=== PATIENT | female | born 1935 | race Two or more races ===

== ENCOUNTER 2016-12-10 15:59 | Observation (INO) | payer OTHER ==
[~2016-12-10] VITALS: Ht 149.9 cm; Wt 66.7 kg
[~2016-12-10 15:59] MED LIST: DIGO0.1262; FURO20TA; GLUC-163; LOSA100T22; METF-312; METO-462; POTA10TA75; TRAZ50T; WARF2TAB55
[2016-12-10] MEDS ORDERED: SODIUM CHLORIDE 0.9% 1,000 ML IV ONE (17:06)
[2016-12-10 17:09] LABS: Basophils # (auto) 0 uL; Eosinophils # (auto) 0 uL; Hematocrit 43.2 % (36.0-46.0); Hemoglobin 14.3 g/dL (12.2-16.2); Lymphocytes # (auto) 0.8 uL; Lymphocytes % (auto) 5.8 % (10.0-50.0); Mean Corpuscular Hemoglobin 29.2 pg (28.0-32.0); Mean Corpuscular Hgb Conc. 33.2 g/dL (32.0-36.0); Mean Corpuscular Volume 88.2 fL (80.0-100.0); Monocytes # (auto) 0.6 uL; Monocytes % (auto) 4.4 % (0.0-12.0); Neutrophils % (auto) 89.8 % (37.0-80.0); Platelet Count (auto) 211 10^3/uL (140-450); Red Cell Distribution Width 15.4 % (11.6-16.0); White Blood Cell 13.4 10^3/uL (4.4-10.8)
[2016-12-10] MEDS ORDERED: ONDANSETRON HCL 4 MG/2 ML VIAL IV ONE ×2 (17:15→23:00)
[2016-12-10 17:18] LABS: Albumin 3.2 g/dL (3.4-5.0); BUN/Creatinine Ratio 17.9; Bilirubin, Total 1.1 mg/dL (0.2-1.0); Calcium 8.5 mg/dL (8.5-10.1); Magnesium 2.4 mg/dL (1.6-2.6); Potassium 3.5 mmol/L (3.5-5.1); Total Protein 7.1 g/dL (6.4-8.2)
[2016-12-10] MEDS: MORPHINE SULF INJ 2 MG/ML SYRINGE 1ML IV ONE ×2 (17:24→17:28)
[2016-12-10] MEDS ORDERED: MEPERIDINE HCL (25 MG/ML) 1ML VIAL IV ONE (17:30)
[2016-12-10 18:22] LABS: Partial Thromboplastin Time 32.7 sec (22.64-33.71)
[2016-12-10 18:23] LABS: INR 1.54 (0.9-1.15); Prothrombin Time 16.6 sec (9.37-12.3)
[2016-12-10] MEDS ORDERED: DIGOXIN 0.125 MG TAB PO ONE ×2 (20:00→21:45)
[2016-12-10] MEDS ORDERED: DILTIAZEM HCL 60 MG TAB PO ONE ×2 (20:00→20:15)
[2016-12-10] MEDS ORDERED: DILTIAZEM HCL 25 MG/5 ML VIAL IV ONE ×2 (20:34→21:00)
[2016-12-10 20:43] LABS: B-Type Natriuretic Peptide 366.89 pg/mL (0-100); Temperature: 22.7 C (20.0-25.0)
[2016-12-10] MEDS ORDERED: FUROSEMIDE 20 MG/2 ML VIAL IV ONE (21:45)
[2016-12-10] MEDS ORDERED: DIGOXIN (250MCG/ML) 2 ML AMPULE ONE (21:52)
[2016-12-10] MEDS ORDERED: DIGOXIN (250MCG/ML) 2 ML AMPULE IV ONE (22:00)
[2016-12-10 22:11] LABS: Urine Bilirubin Negative (Negative); Urine Color Yellow (Yellow); Urine Ketone Negative (Negative); Urine Mucus FEW (None Seen); Urine Nitrite Negative (Negative); Urine RBC 15 /hpf (0 - 4); Urine Urobilinogen Normal (Negative); Urine WBC Clumps PRESENT /hpf (None Seen); Urine pH 5.5 (5.0-8.0)
[2016-12-10 22:15] LABS: Urine Blood 2+ /uL (Negative); Urine Glucose 1+ mg/dL (Normal)
[2016-12-10] MEDS ORDERED: ONDANSETRON HCL 4 MG/2 ML VIAL ONE (22:36)
[2016-12-10] MEDS ORDERED: DILTIAZEM 125mg/125ml BAG KIT 125 ML IV ONE ×2 (22:36→23:00)
[2016-12-10] MEDS ORDERED: cefTRIAXone 1GM/50ML D5W 50 ML IV ONE (22:45)
[2016-12-11] MEDS ORDERED: VANCOMYCIN 1GM/250ML D5W 250 ML IV ONE (00:15)
[2016-12-11] MEDS ORDERED: HYDROmorphone HCL 2 MG/ML VL ONE (02:16)
[2016-12-11] MEDS ORDERED: HYDROmorphone HCL 2 MG/ML VL IV ONE ×2 (02:30→06:45)
[2016-12-11] MEDS ORDERED: SODIUM CHLORIDE 0.9% 500 ML IV ONE (02:45)
[2016-12-11 06:23] VITALS: BP 162/68
[2016-12-11] MEDS ORDERED: ONDANSETRON HCL 4 MG/2 ML VIAL IV ONE (06:45)
== END 2016-12-11 07:05 | disposition home or self-care (01) | DRG 641 ==
LOC: EDBD 15:59 → ER 16:01 → OVERFLOW 17:10 → ER 12-11 07:05
PROVIDERS: ADMIT Emergency Medicine; ATTEND Emergency Medicine
DX: E86.0 Dehydration (principal); E11.65 Type 2 diabetes mellitus with hyperglycemia; G20 Parkinson's disease; I11.0 Hypertensive heart disease with heart failure; I50.9 Heart failure, unspecified; I25.2 Old myocardial infarction
CPT/HCPCS: 36415; 36600; 71020; 80053; 80162; 81001; 82805; 82962; 83735; 83880; 84484; 85025; 85379; 85610; 85730; 87040; 87086; 87088; 87186; 93005; 96361; 96365; 96366; 96368; 96375; 96376; 99285; G0378; J0696; J1160; J1170; J1940; J2175; J2405; J3370

== ENCOUNTER 2017-06-18 20:33 | Emergency (ER) | payer OTHER ==
[~2017-06-18] VITALS: Ht 149.9 cm; Wt 65.8 kg
[~2017-06-18 20:33] MED LIST changes: -METF-312; +METF-370
[2017-06-18 21:32] LABS: Albumin 3.7 g/dL (3.4-5.0); BUN/Creatinine Ratio 32.1; Bilirubin, Total 0.4 mg/dL (0.2-1.0); Calcium 8.5 mg/dL (8.5-10.1); Potassium 3.8 mmol/L (3.5-5.1); Total Protein 7.6 g/dL (6.4-8.2)
[2017-06-18 21:34] LABS: Basophils # (auto) 0.1 uL; Basophils % (auto) 0.8 % (0.0-2.0); Eosinophils # (auto) 0.2 uL; Eosinophils % (auto) 2.5 % (0.0-7.0); Hematocrit 43.3 % (36.0-46.0); Hemoglobin 14.7 g/dL (12.2-16.2); Lymphocytes # (auto) 1.5 uL; Lymphocytes % (auto) 23.5 % (10.0-50.0); Mean Corpuscular Hemoglobin 29.6 pg (28.0-32.0); Mean Corpuscular Hgb Conc. 33.9 g/dL (32.0-36.0); Mean Corpuscular Volume 87.1 fL (80.0-100.0); Mean Platelet Volume 7.4 fL (6.9-10.8); Monocytes # (auto) 0.5 uL; Neutrophils # (auto) 4.1 uL; Neutrophils % (auto) 65.2 % (37.0-80.0); Nucleated Red Blood Cells % 0.2 %; Platelet Count (auto) 183 10^3/uL (140-450); Red Cell Distribution Width 16.2 % (11.8-14.3); White Blood Cell 6.2 10^3/uL (4.4-10.8)
[2017-06-18] MEDS ORDERED: HYDROcodone-ACET 10/325MG TAB PO ONE (23:00)
[2017-06-18] MEDS ORDERED: METOPROLOL TARTRATE 50 MG TAB PO ONE (23:15)
[2017-06-18 23:39] LABS: Temperature: 21.9 C (20.0-25.0)
[2017-06-19] MEDS ORDERED: HYDROcodone-ACET 10/325MG TAB PO ONE (04:00)
[2017-06-19] MEDS ORDERED: LABETALOL HCL 200 MG TAB PO ONE (05:15)
[2017-06-19 06:05] VITALS: BP 154/72
== END 2017-06-19 05:24 | disposition home or self-care (01) ==
LOC: ER 20:33 → EDBD 20:33 → EDUNIT# 20:33 → ER 06-19 05:24
DX: S00.03XA Contusion of scalp, initial encounter (principal); R79.89 Other specified abnormal findings of blood chemistry; R74.8 Abnormal levels of other serum enzymes; I50.9 Heart failure, unspecified; I11.0 Hypertensive heart disease with heart failure; E11.9 Type 2 diabetes mellitus without complications; I25.2 Old myocardial infarction; Z79.01 Long term (current) use of anticoagulants; Z88.6 Allergy status to analgesic agent; W01.0XXA Fall on same level from slipping, tripping and stumbling without subsequent striking against object, initial encounter; Y93.01 Activity, walking, marching and hiking; Y99.8 Other external cause status; Y92.89 Other specified places as the place of occurrence of the external cause
CPT/HCPCS: 36415; 70450; 71010; 72125; 80053; 83880; 84484; 85025; 85379; 93005